=== PATIENT | female | born 1940 | race Caucasian/White ===

== ENCOUNTER 2016-12-05 21:43 | Inpatient (IN) | payer MEDICARE, BC ==
[~2016-12-05] VITALS: Ht 170.2 cm; Wt 88.4 kg
[~2016-12-05 21:43] MED LIST: ATENOLOL50 MG PO; BAYER PLUS325 MG PO; GLUCOPHAGE500 MG/TAB PO; LEVOBUNOLOL 0.5% OP; LIPITOR 80MG80 MG PO; LIPITOR80 MG PO; LISINOPRIL20 MG PO; METFORMIN500 MG PO; NEVANAC 3 ML3 ML OP; NORVASC 5MG5 MG/TAB PO; OMEGA 31000 MG PO; TENORMIN100 MG PO; VITAMIN D1000 IU PO; VITAMIN E28000 IU PO
[2016-12-05 22:21] LABS: BASO % 0.4 % (0.0-2.0); EOS # 0.1 (0.0-0.7); EOS % 0.6 % (0-4.0); GRAN # 8.5 (1.4-6.5); GRAN % 81.9 % (42.2-75.2); HEMATOCRIT 38.6 % (37.0-47.0); HEMOGLOBIN 13.1 g/dl (12.5-16.0); LYMPH # 1.1 (1.2-3.4); LYMPH % 10.2 % (20.0-51.0); MEAN CELL VOLUME 90 fl (80.0-100.0); MEAN CORPUSCULAR HEMOGLOBIN 31 pg (27.0-31.0); MEAN CORPUSCULAR HGB CONC 34 g/dl (33.0-37.0); MONO # 0.7 (0.1-0.6); MONO % 6.5 % (1.7-9.3); PLATELET COUNT 239 K/mm3 (130-400); RED BLOOD COUNT 4.29 M/mm3 (4.10-5.30); REDCELL DISTRIBUTION WIDTH-CV 13.3 % (11.5-14.5); WHITE BLOOD COUNT 10.4 K/mm3 (4.8-10.8)
[2016-12-05 22:24] LABS: PH 6 (5-8); SQUAMOUS EPITHELIAL None Seen /hpf; URINE APPEARANCE Clear; URINE BACTERIA None Seen /hpf; URINE BILIRUBIN Negative (NEGATIVE); URINE BLOOD 1+ (NEGATIVE); URINE COLOR Yellow; URINE GLUCOSE 1+ (NEGATIVE); URINE KETONE Negative (NEGATIVE); URINE RBC 0-2 /hpf; URINE UROBILINOGEN Negative (NEGATIVE); URINE WBC 0-2 /hpf
[2016-12-05 22:30] LABS: ADJUSTED CALCIUM 9.9 mg/dL (8.4-10.2); ALBUMIN 3.9 gm/dL (3.5-5.0); BILIRUBIN,TOTAL 0.8 mg/dL (0.0-1.0); CALCIUM 9.8 mg/dL (8.4-10.2); CREATININE, serum 0.9 mg/dL (0.52-1.25); POTASSIUM 4.3 mmol/L (3.4-5.0); TOTAL PROTEIN 7.4 gm/dL (6.4-8.2)
[2016-12-06] MEDS ORDERED: HCTZ 25MG TAB25 MG PO (00:02)
[2016-12-06] MEDS ORDERED: ALEVE 220MG220 MG PO (00:02)
[2016-12-06] MEDS ORDERED: NAMENDA XR 7 PO (00:02)
[2016-12-06] MEDS ORDERED: ASPIRIN 81M81 MG/TA2 PO (00:03)
[2016-12-06] MEDS ORDERED: COZAAR100 MG PO (00:03)
[2016-12-06] MEDS ORDERED: NORVASC 10MG10 MG PO (00:07)
[2016-12-06] MEDS ORDERED: PRAVACHOL 20MG20 MG PO (00:07)
[2016-12-06] MEDS ORDERED: DESYREL DIVIDO150 M1 PO (00:07)
[2016-12-06 01:04] VITALS: BP 163/124; PULSE 71; TEMP 98
[2016-12-06 01:30] VITALS: BP 145/85; PULSE 60
[2016-12-06 08:06] VITALS: BP 154/48; PULSE 73; TEMP 97.8
[2016-12-06 11:31] VITALS: BP 142/51; PULSE 75; TEMP 97.9
[2016-12-06] MEDS ORDERED: ZYPREXA2.5 MG PO ×2 (15:23→15:25)
[2016-12-06] MEDS ORDERED: DESYREL 50MG50 MG PO (15:23)
[2016-12-06 15:30] VITALS: BP 117/80; PULSE 83; TEMP 98
[2016-12-06 19:59] VITALS: BP 157/84; PULSE 89; TEMP 98
[2016-12-07] VITALS (7 sets, daily range): BP systolic 129–161; BP diastolic 44–63; PULSE 61–85; TEMP 97.8–98.8
[2016-12-08 03:18] VITALS: BP 143/51; PULSE 63; TEMP 97.7
[2016-12-08 07:38] VITALS: BP 111/86; PULSE 66; TEMP 98.1
[2016-12-08] MEDS ORDERED: TYLENOL 500MG500 MG PO (10:44)
[2016-12-08 11:05] VITALS: BP 148/56; PULSE 69; TEMP 97.5
== END 2016-12-08 15:40 | DRG 57 ==
LOC: COL.ER 21:43 → MEDICAL 23:40
PROVIDERS: Emergency Medicine
DX: G30.9 Alzheimer's disease, unspecified (principal); F02.81 Dementia in other diseases classified elsewhere, unspecified severity, with behavioral disturbance; F05 Delirium due to known physiological condition; R44.1 Visual hallucinations; I16.0 Hypertensive urgency; E11.9 Type 2 diabetes mellitus without complications; I10 Essential (primary) hypertension; M54.9 Dorsalgia, unspecified
CPT/HCPCS: 90791-AI; 99233-AI; 99239; G0378; G8978-GP; G8979-GP; G8987-GO; G8988-GO; J1650; J7030

== ENCOUNTER → 2017-05-11 | Outpatient (CLI) | payer MEDICARE, BC ==
[~2017-05-11] MED LIST changes: +ALEVE 220MG220 MG PO; +ASPIRIN 81M81 MG/TA2 PO; +COZAAR100 MG PO; +DESYREL 50MG50 MG PO; +DESYREL DIVIDO150 M1 PO; +HCTZ 25MG TAB25 MG PO; +NAMENDA XR 7 PO; +NORVASC 10MG10 MG PO; +PRAVACHOL 20MG20 MG PO; +TYLENOL 500MG500 MG PO; +ZYPREXA2.5 MG PO
== END ==
LOC: ZCOL.LAB 16:50
DX: Z01.89 Encounter for other specified special examinations (principal)

== ENCOUNTER → 2017-06-08 | Outpatient (REF) ==
[2017-06-08 16:17] LABS: CALCIUM 9.5 mg/dL (8.4-10.2); CHOLESTEROL RISK RATIO 4.8; CREATININE, serum 1.15 mg/dL (0.52-1.25); POTASSIUM 4.9 mmol/L (3.4-5.0)
== END ==
LOC: ZLAB.STJ 15:25
PROVIDERS: Family Medicine
DX: M81.0 Age-related osteoporosis without current pathological fracture (principal); E78.5 Hyperlipidemia, unspecified; E11.9 Type 2 diabetes mellitus without complications

== ENCOUNTER → 2017-07-19 | Outpatient (CLI) | payer MEDICARE, BC | LOC: ZLAB.STJ 14:38 | PROVIDERS: Family Medicine | DX: E78.5 Hyperlipidemia, unspecified (principal) ==

== ENCOUNTER → 2017-12-10 | Outpatient (CLI) | payer MEDICARE, BC | LOC: ZLAB.STJ 09:32 | DX: E11.69 Type 2 diabetes mellitus with other specified complication (principal) ==

== ENCOUNTER → 2018-03-11 | Outpatient (REF) | LOC: ZLAB.STJ 09:56 | DX: E11.69 Type 2 diabetes mellitus with other specified complication (principal) ==

== ENCOUNTER → 2018-06-13 | Outpatient (CLI) | payer MEDICARE, BC ==
[2018-06-13 11:11] LABS: CREATININE, serum 0.92 mg/dL (0.52-1.25)
[2018-06-13 12:19] LABS: POTASSIUM 4.4 mmol/L (3.4-5.0)
== END ==
LOC: ZLAB.STJ 09:31
PROVIDERS: Family Medicine
DX: E11.9 Type 2 diabetes mellitus without complications (principal); E78.5 Hyperlipidemia, unspecified

== ENCOUNTER 2018-08-07 09:11 | Inpatient (IN) | payer MEDICARE, BC ==
[~2018-08-07] VITALS: Ht 165.1 cm; Wt 107.5 kg
[2018-08-07 10:00] LABS: BASO % 0.2 % (0.0-2.0); EOS % 0.1 % (0-4.0); GRAN % 88.1 % (42.2-75.2); HEMATOCRIT 41.2 % (37.0-47.0); HEMOGLOBIN 13.8 g/dl (12.5-16.0); LYMPH # 0.9 (1.2-3.4); LYMPH % 5.1 % (20.0-51.0); MEAN CELL VOLUME 88 fl (80.0-100.0); MEAN CORPUSCULAR HEMOGLOBIN 30 pg (27.0-31.0); MEAN CORPUSCULAR HGB CONC 34 g/dl (33.0-37.0); MONO % 6.1 % (1.7-9.3); PLATELET COUNT 242 K/mm3 (130-400); RED BLOOD COUNT 4.66 M/mm3 (4.10-5.30); REDCELL DISTRIBUTION WIDTH-CV 13.2 % (11.5-14.5)
[2018-08-07 10:10] LABS: ALANINE AMINOTRANSFERASE < 6 U/L (9-52); ALBUMIN 3.8 gm/dL (3.5-5.0); ALKALINE PHOSPHATASE 133 U/L (50-136); ANION GAP 12 mmol/L (7-16); AST,SGOT 16 U/L (15-37); BILIRUBIN,TOTAL 0.9 mg/dL (0.0-1.0); BLOOD UREA NITROGEN 43 mg/dL (7-17); CALCIUM 9.1 mg/dL (8.4-10.2); CARBON DIOXIDE 27 mmol/L (22-30); CHLORIDE 99 mmol/L (98-107); POTASSIUM 4.4 mmol/L (3.4-5.0); SODIUM 138 mmol/L (137-145); TOTAL PROTEIN 7.3 gm/dL (6.4-8.2)
[2018-08-07 10:13] LABS: GLUCOSE 472 mg/dL (74-106)
[2018-08-07] MEDS ORDERED: VITAMIN D31000 I1 PO (10:30)
[2018-08-07] MEDS ORDERED: MIRALAX119G PO (10:31)
[2018-08-07] MEDS ORDERED: GLUCOPHAGE1000 MG PO (10:32)
[2018-08-07 10:33] LABS: LIPASE 8191 U/L (23-300)
[2018-08-07 11:45] LABS: CHOLESTEROL RISK RATIO 5.8
[2018-08-07 11:46] LABS: MUCOUS Present /lpf; PH 5 (5-8); SQUAMOUS EPITHELIAL 0-2 /hpf; URINE APPEARANCE Cloudy; URINE BACTERIA Many /hpf; URINE BILIRUBIN Negative (NEGATIVE); URINE BLOOD 1+ (NEGATIVE); URINE COLOR Yellow; URINE GLUCOSE 3+ (NEGATIVE); URINE KETONE Trace (NEGATIVE); URINE LEUKOCYTE ESTERASE 2+ (NEGATIVE); URINE NITRATE Negative (NEGATIVE); URINE PROTEIN(semi-quant) 1+ (NEGATIVE); URINE RBC 20-50 /hpf; URINE UROBILINOGEN Negative (NEGATIVE)
[2018-08-07 13:12] LABS: COLLECTION METHOD CATHETER
[2018-08-07 14:23] LABS: GASTROCCULT POSITIVE; pH GASTRIC CONTENTS 4
--- NOTE | 2018-08-07 14:50 | NUR ---
Pt arrived to room 351 via stretcher with ED staff. Pt transferred from the stretcher to the floor bed with the assistance of two. Pt and oriented to room and call light system. Will complete assessment. DILIP Alva, notified of the pt's arrival. Pt non-verbal. Call light within reach, will continue to monitor.
[2018-08-07] MEDS ORDERED: MIRALAX PA17 GM/Dose PO (14:57)
[2018-08-07] MEDS ORDERED: COZAAR100 MG PO (14:58)
[2018-08-07 16:28] VITALS: BP 151/67; PULSE 61; TEMP 98.9
[2018-08-07 16:34] VITALS: BP 151/67; PULSE 85
[2018-08-07 20:03] VITALS: BP 139/43; BP 146/45; BP 97/74; PULSE 91; TEMP 99.6
--- NOTE | 2018-08-07 21:30 | NUR ---
Completed medication administration and assessment; PT tolerated all cares well; PT cotinues to be non-verbal during assessment, NPO R/T DX of pancreatitis; NS running at 100ml/hr to LFA; PT confused with history of advanced dementia, BS active x4, lung diminished throughout, AMB x2 asst, resting well in bed with frequent offered repositioning throughout shift; No further assessed or reported concerns at time of exit; No visible pain or discomfort at time of assessment; PT assisted to comfortable position in bed with call light and personal item within reach; will continue to monitor. CDA
[2018-08-08 00:42] VITALS: BP 133/41; PULSE 83; TEMP 97.5
--- NOTE | 2018-08-08 03:56 | NUR ---
PT resting well in bed with acute changes or concerns at time of rounds; NS continues to run at 100ml/hr to LFA; Will continue to monitor. CDA
[2018-08-08 04:50] VITALS: BP 138/48; PULSE 85; TEMP 98.2
[2018-08-08 07:09] LABS: BASO % 0.1 % (0.0-2.0); GRAN # 17.6 (1.4-6.5); HEMATOCRIT 39.4 % (37.0-47.0); HEMOGLOBIN 13.2 g/dl (12.5-16.0); LYMPH % 5.1 % (20.0-51.0); MEAN CELL VOLUME 88 fl (80.0-100.0); MEAN CORPUSCULAR HEMOGLOBIN 30 pg (27.0-31.0); MEAN CORPUSCULAR HGB CONC 34 g/dl (33.0-37.0); MEAN PLATELET VOLUME 10.3 fl (7.4-10.4); MONO # 1.5 (0.1-0.6); MONO % 7.2 % (1.7-9.3); PLATELET COUNT 208 K/mm3 (130-400); RED BLOOD COUNT 4.48 M/mm3 (4.10-5.30); REDCELL DISTRIBUTION WIDTH-CV 13.9 % (11.5-14.5)
--- NOTE | 2018-08-08 07:13 | NUR ---
Report given to DORY Alvarado; No significant changes or concerns during time of report. CDA
[2018-08-08 07:29] VITALS: BP 140/51; PULSE 87; TEMP 99.5
[2018-08-08 07:33] LABS: CALCIUM 7.8 mg/dL (8.4-10.2); CREATININE, serum 1.39 (0.52-1.25); POTASSIUM 3.7 mmol/L (3.4-5.0)
--- NOTE | 2018-08-08 09:05 | NUR ---
Assessment complete. Pt is sleeping upon assessment. Upon awaking pt can track with her eyes. Able to take pills with a few bites of apple sauce. Breathing is even and unlabored on room air. LF infusing, remains free of complications, and is CDI. Pt repositioned for comfort. She is resting quielty and appears content. Call light within reach, will continue to monitor.
[2018-08-08 11:11] VITALS: BP 150/60; PULSE 88; TEMP 99.6
[2018-08-08 15:48] VITALS: BP 114/42; PULSE 107; TEMP 98.7
--- NOTE | 2018-08-08 16:22 | NUR ---
RUCHI and RUCHI student attended clinical rounding. patient has advanced dementia and is not here. Patient lives in [facility] care at [facility]. RUCHI called catherine and faxed information to them. Patients PCP is Dr Oliveros and she obtains her medications from its learning. RUCHI will follow up with patients .
--- NOTE | 2018-08-08 18:35 | NUR ---
Pt has been resting on and off throughout the day. Frequently repositioned for comfort. is at the bedside; all questions answered. Pt is resting quielty at this time and she appears content. Call light within reach. Report given to DORY Garcia.
[2018-08-08 21:56] VITALS: BP 141/51; PULSE 97; TEMP 99.7
--- NOTE | 2018-08-08 23:17 | NUR ---
Completed assessment and medication administration; PT tolerated all cares well; No non-verbal indications of pain or concerns; PT able to communicate through direct questions with physical hand contact answers; PT alert with advanced dementia, denies pain through facial non-verbal commuication, BS active x4, HRRR, advanced to CL diet and tolerating well; No further needs or concerns at time of exit; PT assisted to comfortable position with call light and personal item within reach; Will continue to monitor. CDA
[2018-08-09] VITALS (65 sets, daily range): BP systolic 139–172; BP diastolic 36–81; PULSE 78–129; TEMP 97.9–100.1; O2SAT 97–100
--- NOTE | 2018-08-09 03:37 | NUR ---
PT resting well in bed on left side; No visible signs of pain or discomfort at time of rounds; PT changed throughout night for skin integrity and care; No further needs assessed at time of exit; Will continue to monitor. CDA
[2018-08-09 07:06] LABS: MEAN CELL VOLUME 92 fl (80.0-100.0); MEAN CORPUSCULAR HGB CONC 32 g/dl (33.0-37.0); MEAN PLATELET VOLUME 10.6 fl (7.4-10.4); PLATELET COUNT 211 K/mm3 (130-400); RED BLOOD COUNT 3.77 M/mm3 (4.10-5.30); REDCELL DISTRIBUTION WIDTH-CV 14.2 % (11.5-14.5)
--- NOTE | 2018-08-09 07:10 | NUR ---
Report given to DORY Alexander; No significant change or concerns at time of shift changes. CDA
[2018-08-09 07:15] LABS: HEMATOCRIT 34.6 % (37.0-47.0); MEAN CORPUSCULAR HEMOGLOBIN 29 pg (27.0-31.0)
[2018-08-09 07:24] LABS: CALCIUM 7.6 mg/dL (8.4-10.2); CREATININE, serum 1.32 (0.52-1.25); POTASSIUM 3.3 mmol/L (3.4-5.0)
[2018-08-09 07:48] LABS: BAND 25 % (0-10); HYPOCHROMIA 1+; LYMPHOCYTE 7 % (20.0-51.0); NEUTROPHILS 65 % (42.0-75.2); PLATELET ESTIMATE NORMAL (NORMAL)
[2018-08-09 07:51] LABS: DOHLE BODIES PRESENT
--- NOTE | 2018-08-09 09:57 | NUR ---
Pt continues to sleep soundly in bed. She will open eyes for a few seconds when her name is said but then quickly close them. Medications given whole with applesauce with some mild difficulty. Pt follows commands to open mouth but doesnt open very wide. IVF are infusing into left FA without difficulty. No family at bedside. Bed alarm on.
--- NOTE | 2018-08-09 14:04 | NUR ---
RUCHI met with to discuss discharge planning. Patient would like his to return to [facility] skilled nursing care. He said that he reapplied for medicaid this sunday after meeting with an pizza delivery driver. He has been working on getting her medicaid for over a year so he can continue to get her the care she needs. Patients had some concerns that he would like addressed with [facility]. RUCHI called Say and informed him of these, he will address. Patients would like a copy of discharge orders and for them to be very clear and have [facility]. RUCHI will follow over the weekend to assist.
--- NOTE | 2018-08-09 15:00 | NUR ---
received report from DORY Alexander.patient sleeping at this time.family at bedside.will continue to monitor
--- NOTE | 2018-08-09 16:00 | NUR ---
pt taken to endoscopy via bed.
--- NOTE | 2018-08-09 16:38 | NUR ---
received a call from Danelle stating EGD cannot be done because pt had episodes of Afib RVR. will consult cardiology and get an EKG.pt to be transported to medical floor room 351 soon.
--- NOTE | 2018-08-09 16:55 | NUR ---
pt returned to room with oxygen at 6L on Oxymask.patient resting in bed with IVF infusing.family at bedside.will continue to monitor.call light in reach
[2018-08-09 17:27] LABS: ARTERIAL BLD GAS O2 SATURATION 95.3 % (92-100); ARTERIAL BLD GAS TCO2 CT 23.8; ARTERIAL BLOOD GAS BASE EXCESS -0.6 (-2-2); ARTERIAL BLOOD GAS HCO3 22.8 meq/L (22-26); ARTERIAL BLOOD GAS PCO2 32.8 mmHg (35-45); ARTERIAL BLOOD GAS PO2 75.2 mmHg (80-100); ARTERIAL BLOOD GAS pH 7.46 (7.35-7.45)
--- NOTE | 2018-08-09 20:00 | NUR ---
REPORT WAS GIVEN TO ICU NURSE. FROM BEGINNING OF SHIFT PT WAS SLEEPING/RESTING, BUT UNRESPONSIVE. ADVISED THAT SHE HAD BEEN UNRESPONSIVE FOR ABOUT 3 HOURS. TRIED TO SHAKE PT AND CALL PT'S NAME OUT LOUDLY, NO RESPONSE. AFTER A FEW MINUTES WHEN GETTING READY TO TAKE PT DOWN TO ICU, PT OPENED HER EYES AND DID NOT SAY ANYTHING. PT QUICKLY CLOSED THEM. ADVISED THAT FOR THREE DAYS SHE HAS BEEN NONVERBAL. PT DID OPEN EYES SEVERAL TIMES ON HER WAY DOWN TO ICU. PT'S ADVISED OF VISITING HOURS AND THAT HE WOULD NOT BE ABLE TO GO IN.
--- NOTE | 2018-08-09 20:04 | NUR ---
PT RESTING IN BED AT THIS TIME WITH FAMILY AT BEDSIDE.PATIENT HAS BEEN IN AND OUT OF AFIB RVR. AND DR. MCDANIELS CONSULTED.EKG,STAT CXR,AND ABGS OBTAINED.PATIENT REMAINS ON 6L/OXYMASK.IV ANTIBIOTIC INFUSING. PT TO TRANSFER TO ICU FOR AN AMIODORONE DRIP PER .ONE TIME ORDER OF LOVENOX ADMINISTERED PER . NO OTHER NEEDS VOICED AT THIS TIME.WILL CONTINUE TO MONITOR.REPORT GIVEN TO DORY MURRAY.
--- NOTE | 2018-08-09 21:59 | NUR ---
Arrived to the unit via stretcher. Patient is drowsy, but opened eyes when staff called her name. Squeezed this nurses's hands very lightly but otherwise not following commands. Falls quickly back to sleep. Attached to monitors and allowed into room to get her settled. Will continue to monitor.
--- NOTE | 2018-08-09 22:00 | NUR ---
Patient in sinus rhythm upon arrival to ICU.
[2018-08-10] VITALS (362 sets, daily range): BP systolic 141–170; BP diastolic 58–79; PULSE 72–97; TEMP 98–99.9; O2SAT 90–100
--- NOTE | 2018-08-10 02:15 | NUR ---
Patient is restless pulling of oxymask and observed rubbing stomach. Telma-care provided and repositioned. Nurse asked patient if she was having any pain and patient shook her head yes. Called hospitalist and recived order for PRN Dilauded IV.
--- NOTE | 2018-08-10 02:40 | NUR ---
Updated via telephone; all questions answered.
[2018-08-10 05:22] LABS: HEMOGLOBIN 10.4 g/dl (12.5-16.0); MEAN CELL VOLUME 92 fl (80.0-100.0); MEAN CORPUSCULAR HEMOGLOBIN 29 pg (27.0-31.0); MEAN CORPUSCULAR HGB CONC 32 g/dl (33.0-37.0); MEAN PLATELET VOLUME 10.4 fl (7.4-10.4); PLATELET COUNT 196 K/mm3 (130-400); RED BLOOD COUNT 3.54 M/mm3 (4.10-5.30)
[2018-08-10 05:28] LABS: HEMATOCRIT 32.6 % (37.0-47.0)
[2018-08-10 05:33] LABS: ALBUMIN 2.7 gm/dL (3.5-5.0); BILIRUBIN,TOTAL 0.6 mg/dL (0.0-1.0); CALCIUM 7.9 mg/dL (8.4-10.2); CREATININE, serum 1.04 (0.52-1.25); MAGNESIUM 2.1 mg/dL (1.6-2.3); PHOSPHOROUS 2.5 mg/dL (2.5-4.5); POTASSIUM 3.2 mmol/L (3.4-5.0); TOTAL PROTEIN 5.9 gm/dL (6.4-8.2)
--- NOTE | 2018-08-10 06:10 | NUR ---
Incontinent of urine; assisted with jcarlos-care and linen change. Patient drowsy but awakens to speech. Attempts to communicate verbally, but speech is mostly incomprehensible. Will continue to monitor.
[2018-08-10 06:15] LABS: BAND 33 % (0-10); EOSINOPHIL 2 % (0-4); LYMPHOCYTE 11 % (20.0-51.0); NEUTROPHILS 45 % (42.0-75.2)
[2018-08-10 06:16] LABS: HYPOCHROMIA 1+; PLATELET ESTIMATE NORMAL (NORMAL)
[2018-08-10 06:17] LABS: ANISOCYTOSIS 1+
[2018-08-10 09:25] LABS: ARTERIAL BLD GAS O2 SATURATION 94.5 % (92-100); ARTERIAL BLD GAS TCO2 CT 23.7; ARTERIAL BLOOD GAS BASE EXCESS -0.4 (-2-2); ARTERIAL BLOOD GAS HCO3 22.7 meq/L (22-26); ARTERIAL BLOOD GAS PCO2 32.2 mmHg (35-45); ARTERIAL BLOOD GAS PO2 70.6 mmHg (80-100); ARTERIAL BLOOD GAS pH 7.47 (7.35-7.45)
--- NOTE | 2018-08-10 09:40 | NUR ---
Dr. Corona and Endo team here for EGD with Anesthesia. 1003-Post op report recieved from Ken King RN. Patient sleepy, snoring resps unchanged, continues with O2. Will nelyior
--- NOTE | 2018-08-10 21:39 | NUR ---
REPORT RECEIVED FROM PRESS BUCKER. PT TRANSFERRED TO ROOM 324 FROM ICU 5. PT HAS DEMENTIA BUT SEEMS IN GOOD SPIRITS AND DOES NOT SEEM TO BE IN PAIN.
[2018-08-11] VITALS (8 sets, daily range): BP systolic 130–152; BP diastolic 40–56; PULSE 71–90; TEMP 97.3–98.9
--- NOTE | 2018-08-11 04:54 | NUR ---
PT IN BED. INCONT. OF URINE. SCHEDULED TYLENOL FOR PAIN. REPOSITIONED Q 2 HOURS.
[2018-08-11 06:16] LABS: HEMOGLOBIN 10.9 g/dl (12.5-16.0); MEAN CELL VOLUME 90 fl (80.0-100.0); MEAN CORPUSCULAR HEMOGLOBIN 30 pg (27.0-31.0); MEAN CORPUSCULAR HGB CONC 33 g/dl (33.0-37.0); MEAN PLATELET VOLUME 9.9 fl (7.4-10.4); PLATELET COUNT 195 K/mm3 (130-400); REDCELL DISTRIBUTION WIDTH-CV 14.1 % (11.5-14.5)
[2018-08-11 06:17] LABS: HEMATOCRIT 33.2 % (37.0-47.0)
[2018-08-11 06:35] LABS: CALCIUM 8.4 mg/dL (8.4-10.2); CREATININE, serum 0.9 (0.52-1.25); POTASSIUM 3.5 mmol/L (3.4-5.0)
[2018-08-11 08:36] LABS: BAND 26 % (0-10); EOSINOPHIL 2 % (0-4); LYMPHOCYTE 12 % (20.0-51.0); METAMYELOCYTE 1 % (0-0); NEUTROPHILS 53 % (42.0-75.2); PLATELET ESTIMATE NORMAL (NORMAL)
--- NOTE | 2018-08-11 09:00 | NUR ---
Patient alert, confused, unable to follow commands. See assessment. Abdomen soft, obese. Bowel sounds hyperactive x4 quads. +Flatus. +Bowel movement. No guarding with abdominal palpation. No s/s of discomfort at this time.
--- NOTE | 2018-08-11 19:30 | NUR ---
Pt resting with HOB elevated. No distress noted. Pt is pleasantly confused. Denies pain. Respirations even and unlabored. Lungs clear, bases diminished. Abdomen soft, nontender. BS hypoactive. SCDs bilaterally. O2@3 L via NC on. 2+ edema noted to BLE. Pedal pulses 1+. No needs noted at this time.
--- NOTE | 2018-08-11 22:15 | NUR ---
Pt resting with HOB elevated. Pt incontinent of urine. Brief changed. Pericare provided. HS pills taken crushed with applesauce.
--- NOTE | 2018-08-12 03:15 | NUR ---
Report recieved and cares assumed by this RN. Pt resting in bed, awake, alert, oriented to self only c persistant confused speech. Pt denies pain or other c/o. Previous shift assessment reviewed et agreed upon. Pt s needs, call light in reach et bed alarm on. Will monitor.
[2018-08-12 04:00] VITALS: BP 147/40; PULSE 68; TEMP 100
--- NOTE | 2018-08-12 06:26 | NUR ---
Pt resting in bed, condition unchanged. Pt has rested well while in this RN's care. No needs at this time. Call light in reach, bed alarm on.
[2018-08-12 08:09] LABS: MEAN CELL VOLUME 94 fl (80.0-100.0); MEAN CORPUSCULAR HGB CONC 31 g/dl (33.0-37.0); MEAN PLATELET VOLUME 11.2 fl (7.4-10.4); PLATELET COUNT 195 K/mm3 (130-400); RED BLOOD COUNT 3.24 M/mm3 (4.10-5.30)
[2018-08-12 08:12] LABS: HEMATOCRIT 30.3 % (37.0-47.0); HEMOGLOBIN 9.5 g/dl (12.5-16.0); MEAN CORPUSCULAR HEMOGLOBIN 29 pg (27.0-31.0)
[2018-08-12 08:22] LABS: CALCIUM 7.8 mg/dL (8.4-10.2); CREATININE, serum 0.99 (0.52-1.25); MAGNESIUM 1.9 mg/dL (1.6-2.3); POTASSIUM 3.8 mmol/L (3.4-5.0)
[2018-08-12 08:29] VITALS: BP 144/53; PULSE 77; TEMP 98.9
[2018-08-12 08:32] LABS: BAND 5 % (0-10); EOSINOPHIL 4 % (0-4); NEUTROPHILS 68 % (42.0-75.2); PLATELET ESTIMATE NORMAL (NORMAL)
[2018-08-12 08:33] LABS: LYMPHOCYTE 17 % (20.0-51.0); MYELOCYTE 2 % (0-0)
[2018-08-12 08:34] LABS: DOHLE BODIES PRESENT; TOXIC GRANULATION PRESENT
--- NOTE | 2018-08-12 09:38 | NUR ---
SW attended clinical rounds. Patient is talking more today than at admission. SW will fax discharge orders to [facility].
[2018-08-12 12:12] VITALS: BP 141/59; PULSE 65; TEMP 99.1
[2018-08-12 16:05] VITALS: BP 139/55; PULSE 76; TEMP 97.5
[2018-08-12 20:00] VITALS: BP 142/57; PULSE 70; TEMP 98.2
--- NOTE | 2018-08-12 21:15 | NUR ---
Pt. laying in bed at this time. Pt. is alert and confused. INT to rt. hand started by mailhouse operator this evening is patent. Pt. checked for incontinence. Pt. is dry at this time. Pt. repositioned for comofort. Pt. denies needs.
[2018-08-13] VITALS (7 sets, daily range): BP systolic 114–124; BP diastolic 27–44; PULSE 59–76; TEMP 98.8–99.8
--- NOTE | 2018-08-13 05:17 | NUR ---
Pt. resting quietly. Pt. remains alert and confused. INT to rt. hand patent. No changes through the night.
--- NOTE | 2018-08-13 06:40 | NUR ---
awake resting in bed, bedside shift report received from DORY Harrison
[2018-08-13 07:31] LABS: MEAN CELL VOLUME 90 fl (80.0-100.0); MEAN CORPUSCULAR HGB CONC 33 g/dl (33.0-37.0); PLATELET COUNT 174 K/mm3 (130-400); REDCELL DISTRIBUTION WIDTH-CV 13.9 % (11.5-14.5)
[2018-08-13 07:41] LABS: CALCIUM 7.9 mg/dL (8.4-10.2); CREATININE, serum 1.14 (0.52-1.25); POTASSIUM 4.1 mmol/L (3.4-5.0)
[2018-08-13 07:50] LABS: HEMATOCRIT 28.8 % (37.0-47.0); HEMOGLOBIN 9.5 g/dl (12.5-16.0); MEAN CORPUSCULAR HEMOGLOBIN 30 pg (27.0-31.0)
--- NOTE | 2018-08-13 08:07 | NUR ---
DILIP Marshall notified of elevated WBC
[2018-08-13 08:15] LABS: BAND 11 % (0-10); EOSINOPHIL 1 % (0-4); LYMPHOCYTE 3 % (20.0-51.0); MYELOCYTE 1 % (0-0); NEUTROPHILS 74 % (42.0-75.2); NUCLEATED RED BLOOD CELL 1 (0-6)
[2018-08-13 08:16] LABS: DOHLE BODIES PRESENT; PLATELET ESTIMATE NORMAL (NORMAL); POLYCHROMASIA 1+
--- NOTE | 2018-08-13 08:46 | NUR ---
appears to be sleeping, awakened and denies needs
--- NOTE | 2018-08-13 09:13 | NUR ---
Dr Mednia and care team in to see patient
[2018-08-13 09:39] LABS: INR 1.2 (0.8-3.0); PROTHROMBIN TIME 13.7 SECONDS (9.7-12.8)
--- NOTE | 2018-08-13 09:40 | NUR ---
Dr Rivers notified of consult
--- NOTE | 2018-08-13 10:00 | NUR ---
resting in bed, does not answer questions when asked or if so it is not appropraite, skin assessed earlier with Dr Medina, coccyx is reddened, otherwise is intact, skin under pannus and breasts is CD&I, full assessment completed at this time, see interventions for further info
--- NOTE | 2018-08-13 10:08 | NUR ---
SW faxed updates to [facility].
--- NOTE | 2018-08-13 11:50 | NUR ---
radiology here to take patient for thoracentesis, attempted to contact for consent but unable to reach
--- NOTE | 2018-08-13 12:20 | NUR ---
again unable to reach by telephone for consent
--- NOTE | 2018-08-13 13:22 | NUR ---
continue unable to reach for consent for thoracentesis
--- NOTE | 2018-08-13 13:45 | NUR ---
sitting up in bed being fed by DEALER ACCOUNTS INVESTIGATOR and tolerates well, called and telephone consent received for thoracentesis
--- NOTE | 2018-08-13 14:46 | NUR ---
radiology here, attempted to stand patient and pivot her to and was unsuccessful, incontinent of bowel and bladder and care provided, to radiology per bed
--- NOTE | 2018-08-13 15:35 | NUR ---
returened from from thoracentesis per bed, tolerated well
--- NOTE | 2018-08-13 16:00 | NUR ---
resting in bed, at bedside
[2018-08-13 16:55] LABS: GLUCOSE,PLEURAL FLUID 192 mg/dL
[2018-08-13 17:04] LABS: TOTAL PROTEIN,PLEURAL FLUID < 2.0 gm/dL
--- NOTE | 2018-08-13 18:16 | NUR ---
sitting up in bed and CO FOUNDER & CEO in to assist with her eating her supper
--- NOTE | 2018-08-13 18:18 | NUR ---
radiology notified of chest xray order
--- NOTE | 2018-08-13 18:47 | NUR ---
bedside shift report given to Kim Mantilla
--- NOTE | 2018-08-13 20:00 | NUR ---
Shift assessment complete. Pt resting in bed, sleepy but arousable, alert, oriented to self only c persistantly confused speech. Pt remains cooperative c cares. Denies pain SOB or any other c/o. INT patent. Tele in place. Pt s needs. Call light in reach, bed alarm on. Will monitor.
[2018-08-14 04:15] VITALS: BP 135/60; PULSE 74; TEMP 98.8
[2018-08-14 06:45] LABS: CALCIUM 7.9 mg/dL (8.4-10.2); CREATININE, serum 1.4 (0.52-1.25)
[2018-08-14 06:52] LABS: MEAN CELL VOLUME 91 fl (80.0-100.0); MEAN CORPUSCULAR HGB CONC 32 g/dl (33.0-37.0); MEAN PLATELET VOLUME 10.4 fl (7.4-10.4); PLATELET COUNT 197 K/mm3 (130-400); RED BLOOD COUNT 3.01 M/mm3 (4.10-5.30); REDCELL DISTRIBUTION WIDTH-CV 13.9 % (11.5-14.5)
[2018-08-14 07:25] LABS: HEMATOCRIT 27.3 % (37.0-47.0); HEMOGLOBIN 8.8 g/dl (12.5-16.0); MEAN CORPUSCULAR HEMOGLOBIN 29 pg (27.0-31.0)
--- NOTE | 2018-08-14 07:44 | NUR ---
Notified Ana CHERRY of critical labs
[2018-08-14 07:51] VITALS: BP 130/38; PULSE 66; TEMP 99
--- NOTE | 2018-08-14 08:00 | NUR ---
Patient in bed resting. Arouses to voice and touch. Alert and confused. Denies pain at this time. Shift assessment complete. Denies further needs.
[2018-08-14 08:03] LABS: BAND 2 % (0-10); BASOPHIL 1 % (0-2); EOSINOPHIL 2 % (0-4); LYMPHOCYTE 7 % (20.0-51.0); MYELOCYTE 3 % (0-0); NEUTROPHILS 79 % (42.0-75.2); PLATELET ESTIMATE NORMAL (NORMAL)
[2018-08-14 08:04] LABS: DOHLE BODIES PRESENT
--- NOTE | 2018-08-14 09:15 | NUR ---
Dr. Medina and care team in to see patient.
--- NOTE | 2018-08-14 09:28 | NUR ---
SW attended clinical rounds and will fax updates to [facility].
--- NOTE | 2018-08-14 10:15 | NUR ---
Patient takes AM meds crushed in apple sauce, denies needs at this time.
--- NOTE | 2018-08-14 11:00 | NUR ---
Notified RT of EKG order.
[2018-08-14 11:47] VITALS: BP 129/42; PULSE 57; TEMP 99.1
--- NOTE | 2018-08-14 14:40 | NUR ---
Clarified MRI order with Radiology
[2018-08-14 15:56] VITALS: BP 122/43; PULSE 58; TEMP 99.2
--- NOTE | 2018-08-14 17:23 | NUR ---
Patient slept through most of the morning. Awake this afternoon. Answering questions better this afternoon, occassionally speaking in full sentences. Spouse at bedside. Denies pain at this time. Denies further needs at this time. Will report off to operations supervisor 2nd shift.
[2018-08-14 19:34] VITALS: BP 149/57; PULSE 67; TEMP 98.6
[2018-08-15 00:53] VITALS: BP 132/54; PULSE 65; TEMP 98.2
[2018-08-15 04:20] VITALS: BP 136/50; PULSE 60; TEMP 99
[2018-08-15 07:01] LABS: CREATININE, serum 1.48 (0.52-1.25); POTASSIUM 3.9 mmol/L (3.4-5.0)
[2018-08-15 07:02] LABS: MEAN CELL VOLUME 89 fl (80.0-100.0); MEAN CORPUSCULAR HGB CONC 33 g/dl (33.0-37.0); MEAN PLATELET VOLUME 10.8 fl (7.4-10.4); PLATELET COUNT 219 K/mm3 (130-400); RED BLOOD COUNT 2.98 M/mm3 (4.10-5.30); REDCELL DISTRIBUTION WIDTH-CV 13.8 % (11.5-14.5)
[2018-08-15 07:07] LABS: HEMATOCRIT 26.6 % (37.0-47.0); HEMOGLOBIN 8.8 g/dl (12.5-16.0); MEAN CORPUSCULAR HEMOGLOBIN 30 pg (27.0-31.0)
[2018-08-15 07:28] VITALS: BP 132/40; PULSE 63; TEMP 99.4
[2018-08-15 07:48] LABS: DOHLE BODIES PRESENT; EOSINOPHIL 2 % (0-4); LYMPHOCYTE 5 % (20.0-51.0); NEUTROPHILS 88 % (42.0-75.2); PLATELET ESTIMATE NORMAL (NORMAL)
--- NOTE | 2018-08-15 08:57 | NUR ---
Alert but not oriented to place and time. Edema present in bilateral upper extremities. Warmth and redness present in the right arm. Primary nurse aware and will be contacting doctor. Oxygen on per NC at 3 L. Bilateral upper extremities elevated on pillows. Shift assessment charted. VSS. Temp slightly elevated. Call light in reach.
--- NOTE | 2018-08-15 09:46 | NUR ---
Patient alert, confused. See assessment. LUE with 3+ edema noted. RUE with 2+ edema, redness and warmth noted. Lung sounds decreased in bases. Abdomen soft, non tender, non distended. Bowel sounds active x4 quads. +Flatus. Incontinent. No s/s pain or discomfort visualized at this time. Hospitalist DILIP notified of WBC 22.0.
[2018-08-15 12:00] VITALS: BP 119/36; PULSE 57; TEMP 99.1
[2018-08-15 16:15] VITALS: BP 121/70; PULSE 56; TEMP 99.4
--- NOTE | 2018-08-15 18:53 | NUR ---
Pt in bed. in room. She has been pleasant this shift, with no concerns or complaints voiced. She has been talkative this shift, but responses and sentences do not make sense in conversation. She occasionally answers yes/no questions appropriately. She is now resting with her eyes closed. HOB elevated. SCD's on BLE and working. IV access attempted x1 and unsucessful. Reported to primary nurse. Call light in easy reach of patient.
[2018-08-15 19:17] VITALS: BP 113/72; PULSE 57; TEMP 98
--- NOTE | 2018-08-15 22:27 | NUR ---
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 REPORT RECEIVED. ASSESSMENT COMPLETE. VS STABLE. MEDICATIONS CRUSHED AND PUT IN APPLE SAUCE. NO IV ACCESS-ATTEMPTS MADE. RIGHT ARM WITH MULTIPLE BRUISED AREAS. NO S/S OF PAIN. WILL CONTINUE TO MONITOR.
[2018-08-16] VITALS (7 sets, daily range): BP systolic 117–131; BP diastolic 36–75; PULSE 58–89; TEMP 97.5–100.5
--- NOTE | 2018-08-16 01:00 | NUR ---
IV START X1 ATTEMPT LEFT HAND, 22G. FLUSHES WELL, GOOD BLOOD RETURN, NO S/S OF INFILTRATION NOTED. WILL MONITOR.
--- NOTE | 2018-08-16 05:01 | NUR ---
HAS RESTED WELL OVER THIS SHIFT. ANTIBIOTICS INFUSED WITHOUT DIFFICULTY. NOTED TO HAVE EDEMA IN RIGHT UPPER EXTREMITY-LESS THAN THE BEGINNING OF SHIFT. POSITIONED ON PILLOWS. NO S/S OF PAIN NOTED. VS HAVE BEEN STABLE.
[2018-08-16 07:00] LABS: MEAN CELL VOLUME 91 fl (80.0-100.0); MEAN CORPUSCULAR HGB CONC 32 g/dl (33.0-37.0); MEAN PLATELET VOLUME 10.8 fl (7.4-10.4); PLATELET COUNT 264 K/mm3 (130-400); RED BLOOD COUNT 2.84 M/mm3 (4.10-5.30); REDCELL DISTRIBUTION WIDTH-CV 13.7 % (11.5-14.5)
[2018-08-16 07:02] LABS: HEMATOCRIT 25.9 % (37.0-47.0); HEMOGLOBIN 8.3 g/dl (12.5-16.0); MEAN CORPUSCULAR HEMOGLOBIN 29 pg (27.0-31.0)
[2018-08-16 07:09] LABS: CALCIUM 8.1 mg/dL (8.4-10.2); CREATININE, serum 1.48 (0.52-1.25)
[2018-08-16 07:27] LABS: BAND 4 % (0-10); EOSINOPHIL 2 % (0-4); LYMPHOCYTE 6 % (20.0-51.0); MYELOCYTE 1 % (0-0); NEUTROPHILS 82 % (42.0-75.2); PLATELET ESTIMATE NORMAL (NORMAL); POLYCHROMASIA 1+
--- NOTE | 2018-08-16 08:22 | NUR ---
Pt alert but not oriented to time or place. Sitting in chair position in bed with eyes open. Accucheck this morning was 66. Reported to primary nurse. Gave apple and orange juice. Rechecked 30 min later. Accucheck at this time was 76. Breakfast ordered. Fever was elevated at 100.5. Reported to primary nurse. Warmth and redness noted in the right arm. Call light in reach. Will continue to monitor.
--- NOTE | 2018-08-16 09:34 | NUR ---
SW attended clinial rounds. Patient is not very talkative today. There is still no tentative discharge date. SW will fax updates to [facility].
--- NOTE | 2018-08-16 20:30 | NUR ---
Pt. laying in bed at this time. Pt. is alert and confused. PICC to lt. upper arm patent. +2 edema noted to BUE. Pt. denies pain or other needs, call light within reach.
[2018-08-17 00:35] VITALS: TEMP 98.5
[2018-08-17 04:06] VITALS: BP 129/34; PULSE 73; TEMP 98.9
[2018-08-17 05:59] LABS: MEAN CELL VOLUME 91 fl (80.0-100.0); MEAN CORPUSCULAR HGB CONC 32 g/dl (33.0-37.0); MEAN PLATELET VOLUME 10.4 fl (7.4-10.4); PLATELET COUNT 283 K/mm3 (130-400); RED BLOOD COUNT 2.76 M/mm3 (4.10-5.30); REDCELL DISTRIBUTION WIDTH-CV 13.6 % (11.5-14.5)
--- NOTE | 2018-08-17 06:00 | NUR ---
Pt. slept well between disturbances. Pt. remains alert and confused. Pt. denies pain, call light within reach.
[2018-08-17 06:03] LABS: HEMATOCRIT 25.1 % (37.0-47.0); HEMOGLOBIN 8.1 g/dl (12.5-16.0); MEAN CORPUSCULAR HEMOGLOBIN 29 pg (27.0-31.0)
[2018-08-17 06:14] LABS: CALCIUM 8.1 mg/dL (8.4-10.2); CREATININE, serum 1.33 (0.52-1.25)
[2018-08-17 06:39] LABS: HYPOCHROMIA 1+; LYMPHOCYTE 4 % (20.0-51.0); NEUTROPHILS 89 % (42.0-75.2); PLATELET ESTIMATE NORMAL (NORMAL)
[2018-08-17 10:06] VITALS: BP 140/37; PULSE 63; TEMP 98.1
[2018-08-17 12:15] VITALS: BP 107/39; PULSE 56; TEMP 98.2
[2018-08-17 16:12] VITALS: BP 121/47; PULSE 59; TEMP 98
--- NOTE | 2018-08-17 18:00 | NUR ---
Pleasantly confused. Complains of leg pain when turned. Repositioned in bed with two staff assist. Incontinent care given. Afebrile. Fed by staff. Eats very slowly. Antibiotic infusing per PICC.
[2018-08-17 20:46] VITALS: BP 122/39; PULSE 63; TEMP 98.8
--- NOTE | 2018-08-17 23:05 | NUR ---
Patient resting well in her bed. PICC line to FRANCESCO. Repositioned q2 hours. No complaints of pain. Noted to be pleasantly confused. Difficult to understand her speech. Denies further needs.
[2018-08-18] VITALS (8 sets, daily range): BP systolic 107–126; BP diastolic 28–40; PULSE 55–65; TEMP 97.6–99.5
--- NOTE | 2018-08-18 05:54 | NUR ---
Patient rested well throughout the night. Continues to be confused and garbled speech. Incontinent cares provided.
--- NOTE | 2018-08-18 06:52 | NUR ---
Report given to DORY Coyle
[2018-08-18 07:48] LABS: BASO # 0.1 (0.0-0.2); BASO % 0.4 % (0.0-2.0); EOS # 0.3 (0.0-0.7); GRAN # 13.3 (1.4-6.5); GRAN % 78.4 % (42.2-75.2); LYMPH # 1.4 (1.2-3.4); LYMPH % 8.5 % (20.0-51.0); MEAN CELL VOLUME 93 fl (80.0-100.0); MEAN CORPUSCULAR HGB CONC 31 g/dl (33.0-37.0); MEAN PLATELET VOLUME 10.6 fl (7.4-10.4); MONO # 1.3 (0.1-0.6); MONO % 7.9 % (1.7-9.3); PLATELET COUNT 336 K/mm3 (130-400); RED BLOOD COUNT 2.78 M/mm3 (4.10-5.30); REDCELL DISTRIBUTION WIDTH-CV 13.4 % (11.5-14.5)
[2018-08-18 07:59] LABS: HEMATOCRIT 25.8 % (37.0-47.0); MEAN CORPUSCULAR HEMOGLOBIN 29 pg (27.0-31.0)
[2018-08-18 08:01] LABS: CALCIUM 8.2 mg/dL (8.4-10.2); CREATININE, serum 1.35 (0.52-1.25)
--- NOTE | 2018-08-18 18:00 | NUR ---
O2 on per nasal cannula. Low grade fever. No c/o pain. Incontinent of urine and stool. Repositioned in bed with two staff. IV antibiotic infusing per PICC.
--- NOTE | 2018-08-18 22:43 | NUR ---
PT IN BED. REPOSITIONED Q 2 HOURS. PT WILL NOT LEAVE O2 VIA N.C. ON.
[2018-08-19] VITALS (7 sets, daily range): BP systolic 107–131; BP diastolic 34–86; PULSE 55–581; TEMP 97.5–99.2
[2018-08-19 07:04] LABS: HEMATOCRIT 25.2 % (37.0-47.0); HEMOGLOBIN 7.9 g/dl (12.5-16.0)
--- NOTE | 2018-08-19 08:00 | NUR ---
PATIENT IS DROWSY AND CONFUSED. HX OF DEMENTIA. PATIENT IS FROM [facility] AND IS WC BOUND. ADMITED FOR PANCREATITIS. [facility] SOFT DIET. RISK FOR ASPIRATION AND IS FEEDER. FULL DEPENDENT CARES. ADA DIET. AM BS WAS 106. NO SSI REQUIRED. BREAKFAST TRAY AT BEDSIDE, COMPUTER FORENSIC EXAMINER FEEDING. AM MEDS CRUSHED AND GIVEN IN PUDDING. HEAD TO TOE ASSESSMENT COMPLETE. PATIENT PROVIDED BED BATH, TURNED AND BRIEF INPLACE FOR INCONTINENCE. LEFT PICC LINE TO INT. HOB AT 45 DEGREES. BED ALARM ON. CALL LIGHT IN REACH.
--- NOTE | 2018-08-19 11:14 | NUR ---
SW attended clinical rounds. Patient remains not talkative. SW will fax updates to [facility].
--- NOTE | 2018-08-19 11:15 | NUR ---
HOSPITALIST CARE TEAM ROUNDING. PATIENT SLEEPING BUT ARROUSES EASILY. O2 @ 94% ON 4L PER NC. OXYGEN TURNED DOWN TO 2L, WILL MONITOR. PATIENT HAS HX OF DEMENTIA AND OFTEN PULLS OXYGEN OFF.
--- NOTE | 2018-08-19 20:15 | NUR ---
Pt. sitting up in bed at this time. Pt. is alert and confused. PICC to lt upper arm patent. Pt. denies pain or other needs, call light within reach.
[2018-08-20 06:01] LABS: MEAN CELL VOLUME 91 fl (80.0-100.0); MEAN CORPUSCULAR HGB CONC 32 g/dl (33.0-37.0); MEAN PLATELET VOLUME 9.9 fl (7.4-10.4); RED BLOOD COUNT 2.85 M/mm3 (4.10-5.30); REDCELL DISTRIBUTION WIDTH-CV 13.4 % (11.5-14.5)
[2018-08-20 06:02] LABS: HEMOGLOBIN 8.3 g/dl (12.5-16.0); MEAN CORPUSCULAR HEMOGLOBIN 29 pg (27.0-31.0); PLATELET COUNT 453 K/mm3 (130-400)
[2018-08-20 06:19] LABS: CALCIUM 8.3 mg/dL (8.4-10.2); CREATININE, serum 1.27 (0.52-1.25); POTASSIUM 4.1 mmol/L (3.4-5.0)
[2018-08-20 06:48] LABS: ANISOCYTOSIS 1+; BAND 6 % (0-10); EOSINOPHIL 1 % (0-4); HYPOCHROMIA 1+; LYMPHOCYTE 9 % (20.0-51.0); NEUTROPHILS 78 % (42.0-75.2); PLATELET ESTIMATE INCREASED (NORMAL); POLYCHROMASIA 1+
[2018-08-20 07:46] VITALS: BP 140/44; PULSE 63; TEMP 97.6
--- NOTE | 2018-08-20 09:00 | NUR ---
Patient in bed resting. Alert and confused. Shift assessment completed. PICC to FRANCESCO without complications. Edema noted to bilateral upper extremities, +3 pitting. Edema to BLE +2 pitting. Denies pain at this time. Took pills crushed in pudding. COMMUTATOR ASSEMBLER assisting with feeding breakfast. Skin tear noted to right forarm. Denies further needs at this time.
--- NOTE | 2018-08-20 09:24 | NUR ---
RUCHI attended clinical rounds. Patient can possibly discharge back to [facility] today. Doctor would like the analyst food and beverage to see her before she is discharged. RUCHI will follow up after Dr Fraser visits with patient.
[2018-08-20 10:54] LABS: INR 1.2 (0.8-3.0); PROTHROMBIN TIME 13.8 SECONDS (9.7-12.8)
[2018-08-20 11:24] VITALS: BP 134/42; PULSE 56; TEMP 98.7
[2018-08-20] MEDS ORDERED: IPRATROPIUM BROM3 M1 IH ×2 (11:43)
[2018-08-20] MEDS ORDERED: PACERONE400 MG PO (11:43)
[2018-08-20] MEDS ORDERED: LOPRESSOR 550 MG/TAB PO (11:44)
[2018-08-20] MEDS ORDERED: TYLENOL 325MG325 MG PO (11:45)
[2018-08-20] MEDS ORDERED: PROTONIX 40MG T40 MG PO (11:46)
[2018-08-20] MEDS ORDERED: LEVEMIR FLEX100 U/ML SQ (11:48)
[2018-08-20] MEDS ORDERED: HCTZ12.5TAB PO (12:32)
[2018-08-20 13:55] LABS: GLUCOSE,PLEURAL FLUID 121 mg/dL
[2018-08-20 13:57] LABS: TOTAL PROTEIN,PLEURAL FLUID < 2.0 gm/dL
[2018-08-20 14:08] LABS: PLEURAL FLUID APPEARANCE CLEAR; PLEURAL FLUID COLOR YELLOW
[2018-08-20 14:15] LABS: PLEURAL FLUID RBC 3000 /mm3 (0-0); PLEURAL FLUID WBC 420 /mm3
[2018-08-20] MEDS ORDERED: BD POSIFLUSH SF10 ML IV (14:38)
--- NOTE | 2018-08-20 15:00 | NUR ---
Patient will discharge today back to [facility] for senior care, PT, and OT. SW contacted patient's and reviewed IM with him. Her voiced understanding. RUCHI arranged transportation at 4pm and faxed discharge orders.
[2018-08-20 15:32] VITALS: BP 134/42; PULSE 56; TEMP 98.7
--- NOTE | 2018-08-20 16:36 | NUR ---
Transfered patient to wheelchair by jo lift. Patient out by wheelchair to V.
--- NOTE | 2018-08-20 16:41 | NUR ---
Left VM for [facility] to call back for report.
== END 2018-08-20 16:43 | DRG 438 ==
LOC: COL.ER 09:11 → MEDICAL 11:00 → SURG 11:00 → MEDICAL 11:00 → ICU 11:00 → MEDICAL 14:55 → ICU 08-09 21:43 → SURG 08-10 21:53
PROVIDERS: Emergency Medicine; Hospitalist; Internal Medicine; Internal Medicine Gastroenterology; Internal Medicine Pulmonary Disease; Nurse Practitioner Family; Physician Assistant
PROC: 0DJ08ZZ Inspection of Upper Intestinal Tract, Via Natural or Artificial Opening Endoscopic (ICD-10-PCS; principal; 2018-08-10 09:30)
PROC: 0W993ZX Drainage of Right Pleural Cavity, Percutaneous Approach, Diagnostic (ICD-10-PCS; 2018-08-13)
PROC: 0W9B3ZX Drainage of Left Pleural Cavity, Percutaneous Approach, Diagnostic (ICD-10-PCS; 2018-08-20)
DX: K85.00 Idiopathic acute pancreatitis without necrosis or infection (principal); J96.01 Acute respiratory failure with hypoxia; K29.71 Gastritis, unspecified, with bleeding; N39.0 Urinary tract infection, site not specified; E87.2 Acidosis; J90 Pleural effusion, not elsewhere classified; I82.611 Acute embolism and thrombosis of superficial veins of right upper extremity; E87.3 Alkalosis; N17.9 Acute kidney failure, unspecified; I10 Essential (primary) hypertension; E11.65 Type 2 diabetes mellitus with hyperglycemia; E78.5 Hyperlipidemia, unspecified; G30.9 Alzheimer's disease, unspecified; F02.80 Dementia in other diseases classified elsewhere, unspecified severity, without behavioral disturbance, psychotic disturbance, mood disturbance, and anxiety; B96.20 Unspecified Escherichia coli [E. coli] as the cause of diseases classified elsewhere; I48.91 Unspecified atrial fibrillation; D64.9 Anemia, unspecified; E87.6 Hypokalemia; E87.8 Other disorders of electrolyte and fluid balance, not elsewhere classified; K21.0 Gastro-esophageal reflux disease with esophagitis; K22.8 Other specified diseases of esophagus
CPT/HCPCS: 99223-AI; 99232-AI; 99233-AI; 99239; A4216; A9585; C1751; C9113; J0282; J0360; J0696; J1170; J1650; J1815; J2405; J2543; J2704; J3480; J7030; J7060; J7120; Q9967

== ENCOUNTER → 2018-08-29 | Outpatient (CLI) | payer MEDICARE, BC ==
[~2018-08-29] MED LIST changes: +BD POSIFLUSH SF10 ML IV; +GLUCOPHAGE1000 MG PO; +HCTZ12.5TAB PO; +IPRATROPIUM BROM3 M1 IH; +LEVEMIR FLEX100 U/ML SQ; +LOPRESSOR 550 MG/TAB PO; +MIRALAX PA17 GM/Dose PO; +MIRALAX119G PO; +PACERONE400 MG PO; +PROTONIX 40MG T40 MG PO; +TYLENOL 325MG325 MG PO; +VITAMIN D31000 I1 PO
== END ==
LOC: COL.RAD 12:00
DX: J90 Pleural effusion, not elsewhere classified (principal)